=== PATIENT | male | born 1950 | race Caucasian/White ===

== ENCOUNTER 2017-09-22 09:57 | Outpatient (CLI) | payer OTHER ==
[~2017-09-22] VITALS: Ht 172.7 cm; Wt 59.0 kg
[2017-09-22] VITALS (9 sets, daily range): BP systolic 141–163; BP diastolic 67–84
[~2017-09-22 09:57] MED LIST: AMITRIPTYLINE H25 M3; AMITRIPTYLINE100 MG PO; CODEINE SULFATE30 MG PO; COREG12.5 MG PO; HYDROCHLOROTHIA25 M2 PO; LIPITOR10 MG PO; LISINOPRIL40 MG PO; OMEPRAZOLE40 MG PO; PRILOSEC 20 MG20 MG PO; SIMVASTATIN20 MG PO; TYLENOL325 MG PO
[2017-09-22] MEDS ORDERED: ASPIRIN325 PO (10:38)
[2017-09-22] MEDS ORDERED: OMEPRAZOLE 20 M20 M1 PO (10:39)
[2017-09-22] MEDS ORDERED: NORCO 10-325 T1 EACH PO (10:39)
[2017-09-22] MEDS ORDERED: PLAVIX 75 MG TA75 M1 PO (10:39)
[2017-09-22] MEDS ORDERED: TRAZODONE HCL100 MG PO (10:40)
[2017-09-22] MEDS ORDERED: ZANAFLEX4 MG PO (10:40)
[2017-09-22 10:58] LABS: HEMOGLOBIN 12.8 gm/dL (14.0-18.0); MCH 30.8 pg (26.0-34.0); MCHC 34.6 g/dL (28.0-37.0); MCV 89.2 fL (80.0-100.0); RBC 4.15 mil/uL (4.50-6.00); RDW-CV 12.9 % (10.5-14.5); WBC 4.4 thou/uL (4.0-11.0)
[2017-09-22 11:08] LABS: ANION GAP 12 mmol/L (7-16); BUN 26 mg/dL (7-18); CALCIUM 9.1 mg/dL (8.5-10.1); CHLORIDE 103 mmol/L (98-107); CO2 27 mmol/L (21-32); CREATININE 1.4 mg/dL (0.6-1.3); GLUCOSE 118 mg/dL (70-99); INR 1.2; POTASSIUM 3.9 mmol/L (3.5-5.1); PROTIME 11.7 Seconds (9.20-11.50); SODIUM 142 mmol/L (136-145)
[2017-09-22 11:12] LABS: ALBUMIN 3.8 g/dL (3.4-5.0); ALKALINE PHOSPHATASE 42 U/L (46-116); CHOLESTEROL 109 mg/dL (<200); HDL CHOLESTEROL 42 mg/dL (>40); LDL CHOLESTEROL 55 mg/dL (<100); SGOT 16 U/L (15-37); SGPT 26 U/L (30-65); TC:HDL 2.6 Ratio (Not establshd); TOTAL BILIRUBIN 0.4 mg/dL (<0.1-1.0); TOTAL PROTEIN 6.4 g/dL (6.4-8.2); TRIGLYCERIDE 62 mg/dL (<150); VLDL 12 mg/dL (<40)
[2017-09-22 11:24] LABS: SERUM ASSESSMENT Clear
--- NOTE | 2017-09-22 15:05 | EKG ---
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
--- NOTE | 2017-09-22 16:56 | 2DMMODE ---
[place] [address] 2 D/M-MODE ECHOCARDIOGRAM Name: DOROTEO DE LA CRUZ Room: [address] MEENA Pruett#: [id number] Admission: 09/22/17 Attend Phys: Derik Tracey Discharge: Date of : 50 Date of Service: 09/22/17 1656 Report #: [id number] THIS REPORT FOR: //name// APPROVED REPORT Study performed: 09/22/2017 15:54:17 EXAM: Comprehensive 2D, Doppler, and color-flow Echocardiogram Patient Location: Out-Patient Status: routine BSA: 1.70 HR: 55 bpm Other Information Study Quality: Good Indications CAD Pre OP CABG 2D Dimensions LVEF(%): 55.90 (>50%) IVSd: 12.04 (7-11mm) LVOT Diam: 20.28 (18-24mm) LVDd: 44.50 mm PWd: 10.28 (7-11mm) Ascending Ao: 29.95 (22-36mm) LVDs: 31.59 (25-40mm) Aortic Root: 24.43 mm Samano's LVEF: 55.90 % Volumes Left Atrial Volume (Systole) LA ESV Index: 25.10 mL/m2 Aortic Valve AoV Peak Mauricio.: 1.13 m/s AO Peak Gr.: 5.11 mmHg LVOT Max P.71 mmHg AO Mean Gr.: 2.63 mmHg LVOT Mean P.03 mmHg LVOT Max V: 1.09 m/s AO V2 VTI: 26.42 cm LVOT Mean V: 0.64 m/s SANDY (VTI): 3.13 cm2 LVOT V1 VTI: 25.59 cm Mitral Valve E/A Ratio: 0.86 [place] [address] 2 D/M-MODE ECHOCARDIOGRAM Name: DOROTEO DE LA CRUZ Room: [address]#: [id number] Admission: 09/22/17 Attend Phys: Derik Tracey Discharge: Date of : 50 Date of Service: 09/22/17 1656 Report #: [id number] MV Decel. Time: 163.68 ms MV E Max Mauricio.: 0.75 m/s MV PHT: 47.47 ms MVA (PHT): 4.63 cm2 TDI E/Lateral E': 9.38 E/Medial E': 9.38 Medial E' Mauricio.: 0.08 m/s Lateral E' Mauricio.: 0.08 m/s Pulmonary Valve PV Peak Mauricio.: 0.81 m/s PV Peak Gr.: 2.64 mmHg Tricuspid Valve TR Peak Gr.: 22.49 mmHg RVSP: 27.49 mmHg Left Ventricle The left ventricle is normal size. There is normal LV segmental wall motion. There is normal left ventricular wall thickness. Left ventricular systolic function is normal. The left ventricular ejection fraction is within the normal range. LVEF is 60%. Grade I - abnormal relaxation pattern. Right Ventricle The right ventricle is normal size. The right ventricular systolic function is normal. Atria The left atrium size is normal. The right atrium size is normal. Aortic Valve Mild aortic valve sclerosis. Trace aortic regurgitation. There is no aortic valvular stenosis. Mitral Valve The mitral valve is normal in structure. There is no mitral valve regurgitation noted. No evidence of mitral valve stenosis. Tricuspid Valve The tricuspid valve is normal in structure. Mild tricuspid regurgitation. The RVSP is _27.5 mmHg. Pulmonic Valve The pulmonary valve is normal in structure. [place] [address] 2 D/M-MODE ECHOCARDIOGRAM Name: DOROTHYDOROTEO Elias [address] [id number] Admission: 09/22/17 Attend Phys: Derik Tracey Discharge: Date of : 50 Date of Service: 09/22/17 1656 Report #: [id number] Great Vessels The aortic root is normal in size. IVC is normal in size and collapses with >50% inspiration Pericardium There is no pericardial effusion. <Conclusion> The left ventricle is normal size. There is normal left ventricular wall thickness. Left ventricular systolic function is normal. The left ventricular ejection fraction is within the normal range. LVEF is 60%. Grade I - abnormal relaxation pattern. The right ventricle is normal size. The left atrium size is normal. Mild aortic valve sclerosis. Trace aortic regurgitation. There is no aortic valvular stenosis. The mitral valve is normal in structure. There is no mitral valve regurgitation noted. The tricuspid valve is normal in structure. Mild tricuspid regurgitation. The RVSP is _27.5 mmHg. The aortic root is normal in size. IVC is normal in size and collapses with >50% inspiration There is no pericardial effusion. There is normal LV segmental wall motion. <ELECTRONICALLY SIGNED> By: Fabian Medel MD, FACC 09/22/17 1656 55 55 Fabian Medel MD, FACC /INF
--- NOTE | 2017-09-25 11:17 | CARD ---
[address] [address] CARDIAC CATH REPORT Name: DOROTEO DE LA CRUZ Room: [address] DerikXimenaBridgettXimena#: [id number] Admission: 09/22/17 Attend Phys: Fabian Medel MD, Discharge: Date of : 50 Report #: [id number] THIS REPORT FOR: //name// APPROVED REPORT Study performed: 09/22/2017 13:05:51 Patient Details Patient Status: Out-Patient Room #: The patient is a 67 year-old male Event Personnel Fabian Medel Program Engineer, Lupe Pinto RN Brush Worker, Brenda Crane Monitor, Angelic Matta RTR Scrub Procedures Performed Art Access - R femoral artery* Left Heart Cath w/or w/o Coronaries [id number] [facility] Indication Unstable angina Risk Factors Family History, Hypercholesterolemia, Hypertension Procedure Narrative The patient was brought electively to the Cardiac Catheterization Laboratory and was prepped and draped in a sterile manner. The right femoral was infiltrated with 2% Lidocaine subcutaneous anesthesia. A Timbo 6 FR sheath was inserted into the right femoral artery. Coronary angiography was performed using coronary diagnostic catheters. The right coronary system was accessed and visualized with a 6fr JR 4 catheter. The left coronary system was accessed and visualized with a 6fr JL 4 catheter. The left ventricle was accessed and visualized with a 6fr Straight Pigtail catheter. Left ventricular/Aortic Valve gradient assessed . Left ventriculogram was performed in VALE projection. Pre-demployment femoral angiogram was performed . Closure device was deployed with a 6 Fr MynxGrip 6/7F. The patient tolerated the procedure well and there were no complications associated with the procedure. There was no hematoma. Intraoperative Conscious Sedation Sedation start time: 13:43 Case end Time: 14:05 [place] [address] CARDIAC CATH REPORT Name: DE LA CRUZDOROTEO RICHARDSON [address]: [address] [id number] Admission: 09/22/17 Attend Phys: Fabian Medel MD, Discharge: Date of : 50 Report #: [id number] Fentanyl 75 mcg Versed 3 mg Fluoro Time: 2.6 minutes Dose: DAP 57660 cGycm2 584.86 mGy Contrast Type and Amount: Visipaque 90 ml Diagnostic Cath Left Main 0% narrowing LAD 40% very proximal narrowing with 90% stenosis of the proximalmid LAD involving the takeoff of a prominent diagonal branch with 90% tubular mid vessel stenosis and 50% distal narrowing Circumflex 90% stenosis of the first marginal branch with total circumflex occlusion beyond this point with left to left collaterals filling the second marginal branch and the distal circumflex Right Coronary Dominant vessel with 90% proximal narrowing and 100% mid vessel stenosis with reconstitution of the distal right coronary artery with right to right and [id number] collaterals filling the distal vessel Left Ventriculography The left ventricle is normal in size with normal contractility. The left ventricular ejection fraction is estimated to be 65%. Left ventricular wall motion abnormalities are not present. There is no mitral insufficiency. Hemodynamics The aortic pressure is 147/60 mmHg with a mean of mmHg. The left ventricular pressure is 151/0 mmHg with a mean of mmHg. The left ventricular end diastolic pressure is 8 mmHg. Pullback from the left ventricle to the aorta revealed no gradient across the aortic valve. Conclusion #1 significant multivessel coronary artery disease characterized by the following: A 40% very proximal LAD narrowing with 90% proximalmid vessel stenosis involving the takeoff of a prominent diagonal branch with 90% mid vessel narrowing and 50% distal LAD stenosis B nondominant circumflex with 90% proximal narrowing of the first marginal branch followed by total occlusion of the proximal circumflex with left to left collaterals filling the second marginal [place] [address] CARDIAC CATH REPORT Name: DOROTEO DE LA CRUZ Room: [address]#: [id number] Admission: 09/22/17 Attend Phys: Fabian Medel MD, Discharge: Date of : 50 Report #: [id number] C dominant right coronary artery with 90% proximal stenosis with 100% mid vessel occlusion with right to right and [id number] collaterals filling the distal right coronary system #2 normal left ventricular systolic function, estimated ejection fraction being 65% #3 normal left-sided hemodynamics study Recommendations CABG Diagnostic Cath Approved by: Fabian Medel MD Date/Time: 09/25/17 at 1114 hours <ELECTRONICALLY SIGNED> By: Fabian Medel MD, [facility] 09/25/171116 16 16Fabian Medel MD, FAC /INF
== END 2017-09-22 17:36 | disposition home or self-care (01) ==
LOC: M.CL 09:57 → M.TBA-CV 14:22 → M.CL 17:36
PROVIDERS: Internal Medicine
DX: I25.10 Atherosclerotic heart disease of native coronary artery without angina pectoris (principal); I35.8 Other nonrheumatic aortic valve disorders; I35.1 Nonrheumatic aortic (valve) insufficiency; I34.0 Nonrheumatic mitral (valve) insufficiency; I10 Essential (primary) hypertension; F32.9 Major depressive disorder, single episode, unspecified; Z79.82 Long term (current) use of aspirin; Z79.899 Other long term (current) drug therapy; Z79.891 Long term (current) use of opiate analgesic; Z86.73 Personal history of transient ischemic attack (TIA), and cerebral infarction without residual deficits; Z98.890 Other specified postprocedural states; Z79.01 Long term (current) use of anticoagulants

== ENCOUNTER → 2020-09-09 | Outpatient (CLI) | payer OTHER ==
[~2020-09-09] MED LIST changes: +AMBIEN5 MG PO; +ASPIRIN325 PO; +CARVEDILOL12.5 MG PO; +HYDROCHLOROTHIA25 M1 PO; +LIPITOR40 MG PO; +LISINOPRIL; +LISINOPRIL20 MG PO; -LISINOPRIL40 MG PO; +NORCO 10-325 T1 EACH PO; +NORVASC10 MG PO; +OMEPRAZOLE 20 M20 M1 PO; +PLAVIX 75 MG TA75 M1 PO; +PLAVIX 75 MG TA75 MG PO; +TRAZODONE HCL100 MG PO; +ZANAFLEX4 MG PO
--- NOTE | 2020-09-09 17:38 | CARDNUC ---
[place] [address] CARDIAC NUCLEAR IMAGING REPORT Name: DOROTEO DE LA CRUZ JR Room: [facility]#: [id number] Admission: 09/09/20 Attend Phys: Derik Tracey Discharge: Date of : 50 Date of Service: 09/09/20 1738 Report #: [id number] THIS REPORT FOR: cc: Tammie Dawn MD, Allison Louise MD Liston, Michael J. MD [facility] ~ APPROVED REPORT Imaging Protocol: Stress Tc-99m/Rest Tc-99m 1 day Study performed: 09/09/2020 07:30:00 Indication: DYSPNEA, Bradycardia. Patient Location: Out-Patient Stress Tech: Lisa Waggoner Stress Nurse: Rhina Diaz RN Ht: 5 ft 8 in Wt: 132 lbs BSA: 1.71 m2 HR: 47 bpm BP: 124/78 mmHg BMI: 20.06 Medical History Medical History: Dyspnea, hypercholesterolemia, CAD s/p CABG, Bradycardia, s/p CVA x3, poor memory, HTN, HLD, tremors, slow/unsteady gait. Medications: AMLODIPINE, ATORVASTATIN, CARVEDILOL, PLAVIX, HCTZ, LISINOPRIL Allergies: NKDA Cardiac Risk Factors: SOB, Age, Hyperlipidemia, HTN, FHX of CAD, Bradycardia, hypercholesterolemia. Previous Cardiac Procedures: CABG, CAD Pretest Chest Pain Characteristics: No chest pain Physical Disabilities: Slow, unsteady gait, fatigue. Resting Data Rest SPECT myocardial perfusion imaging was performed in supine position 30 minutes following the intravenous injection of 10.1 mCi of Tc-99m Sestamibi. Time of rest injection: 07:55 The images were gated to evaluate regional wall motion and calculate left ventricular ejection fraction. Administration Route: IV Administration Site: Right AC [place] [address] CARDIAC NUCLEAR IMAGING REPORT Name: DOROTEO DE LA CRUZ JR Room: [facility] [place]#: [id number] Admission: 09/09/20 Attend Phys: Derik Tracey Discharge: Date of : 50 Date of Service: 09/09/20 1738 Report #: [id number] Pharmacologic stress test was performed by injecting Regadenoson 0.4 mg IV push over 10-15 seconds immediately followed by the intravenous injection of 27.7 mCi of Tc-99m Sestamibi. Time of stress injection: 10:10 Administration Route: IV Administration Site: Right AC Heart Rate at time of stress injection: 76 bpm. Gated Stress SPECT was performed 45 minutes after stress injection. The images were gated to evaluate regional wall motion and calculate left ventricular ejection fraction. Prone imaging was performed. Stress Test Details Stress Test: Pharmacologic stress testing performed using 0.4 mg of regadenoson per 5 mL given IV over 10 seconds. Reason for pharmacologic stress test: Slow, unsteady gait, fatigue.. HR Max Heart Rate (APMHR): 150 bpm Resting HR: 47 bpm Target HR (85% APMHR): 127 bpm Max HR Achieved: 85 bpm % of APMHR: 56 Recovery HR: 69 bpm BP Resting BP: 124/78 mmHg Max BP: 123/69 mmHg Recovery BP: 145/77 mmHg ECG Resting ECG: Sinus Rhythm Stress ECG: Sinus Rhythm ST Change: None Arrhythmia: None Recovery ECG: Sinus Rhythm Recovery ST Change: None Recovery Arrhythmia: None Clinical Reason for Termination: Completed protocol Stress Symptoms: Dyspnea, lightheadedness. Exercise duration: 00 min 00 sec Exercise capacity: 1.00 METs The patient tolerated Lexiscan infusion without significant [place] [address] CARDIAC NUCLEAR IMAGING REPORT Name: DOROTEO DE LA CRUZ JR Room: [facility]#: [id number] Admission: 09/09/20 Attend Phys: Derik Tracey Discharge: Date of : 50 Date of Service: 09/09/20 1738 Report #: [id number] Nurse Comments A 69 year old male presented for a sitting Lexiscan Nuclear Stress Test, he refused walking on treadmill. Test well tolerated. Recovery unremarkable. Patient was stable and stated he felt good when escorted to Nuclear Medicine for imaging. Stress ECG Conclusion The baseline twelve-lead EKG shows sinus rhythm without significant ST segment or T wave abnormality. EKGs obtained during and post Lexiscan infusion show sinus rhythm with no significant ST segment or T wave changes when compared to baseline. There were no stress-induced arrhythmias. Study Quality Study: Good Artifact: Mild Diaphragmatic artifact Study Data At rest, the left ventricular ejection fraction was 58%.. Post stress, the left ventricular ejection was 72%.. TID = 0.94. Perfusion Perfusion images obtained in the supine position especially at rest show photopenia involving the inferior wall consistent with diaphragmatic attenuation artifact. Post-rest images show minimal inferior wall photopenia. Post-rest prone imaging shows uniform uptake of the radioisotope throughout the myocardium without defect. There were no defects to suggest infarct or ischemia. Wall Motion Normal left ventricular wall motion. Nuclear Conclusion ECG Findings: negative for ischemia Clinical Findings: negative for ischemia Nuclear Findings: negative for ischemia Exercise Capacity: not assessed Left Ventricular Function: normal Risk Study: low Myocardial perfusion images show no defect to suggest infarct or ischemia. Left ventricular systolic function appears normal on gated studies. This is a low risk study. <Conclusion> The baseline twelve-lead EKG shows sinus rhythm [place] [address] CARDIAC NUCLEAR IMAGING REPORT Name: DOROTEO DE LA CRUZ JR Room: [facility]#: [id number] Admission: 09/09/20 Attend Phys: Derik Tracey Discharge: Date of : 50 Date of Service: 09/09/20 1738 Report #: [id number] segment or T wave abnormality. EKGs obtained during and post Lexiscan infusion show sinus rhythm with no significant ST segment or T wave changes when compared to baseline. There were no stress-induced arrhythmias. <ELECTRONICALLY SIGNED> By: Arnulfo Quintero MD, FACC 09/09/20 1738 1738 1738 Arnulfo Quintero MD, FACC /INF
== END ==
LOC: M.NUC 07:31
PROVIDERS: ATTEND Internal Medicine
DX: I25.810 Atherosclerosis of coronary artery bypass graft(s) without angina pectoris (principal); R06.00 Dyspnea, unspecified; R00.1 Bradycardia, unspecified